=== PATIENT | female | born 1940 | race Caucasian/White ===

== ENCOUNTER 2016-09-25 05:06 | Day surgery (SDC) | payer MEDICARE, OTHER ==
[~2016-09-25 05:06] MED LIST: ADVAIR 1001 DISK W/D; ALEVE220 M3 PO; AMBIEN10 M1 PO; ARIMIDEX1 M1 PO; ASPIR 8181 M1 PO; ATENOLOL25 M1 PO; ATENOLOL25 MG; BACTRIM DS TAB1 EAC2 PO; CLONAZEPAM1 M2 PO; COZAAR25 M1 PO; GLUCOPHAGE1000 M1 PO; HYDROCHLOROTH12.5 M3 PO; HYDROCODON-ACE1 EA17 PO; INDOMETHACIN25 MG; LEVAQUIN500 M1 PO; LOVASTATIN20 MG; MELOXICAM15 M1 PO; METAMUCIL0.52 G1 PO; MOBIC15 M2 PO; NORCO 5-325 TA1 EACH PO; OXYCONTIN20 M2 PO; PLAVIX75 M1 PO; PROMETHAZINE HC25 M3 PO; PROVENTIL HFA6.7 G1; SENNA-S TABLET1 EAC3 PO; SIMVASTATIN40 M1 PO; TRAMADOL-ACETA1 EAC1 PO; TRAZODONE HCL50 M1 PO; TUMS200 MG PO; TYLENOL ARTHRI650 M1 PO; [UNRECOGNIZED DRUG - OTHER]
[2016-09-25 05:29] LABS: BASO % 0.8 % (0-2); BASO ABSOLUTE COUNT 0.1 tho/cmm (0.0-0.2); EOS % 8.7 % (0-7); EOSINOPHIL ABSOLUTE COUNT 0.7 tho/cmm (0.0-0.7); HCT-HEMATOCRIT 33.2 % (34.0-49.0); HGB-HEMOGLOBIN 10.3 gm/dl (12.0-15.5); IMMATURE GRANULOCYTES ABSOLUTE 0.01 tho/cmm (0-0.03); IMMATURE GRANULOCYTES PERCENT 0.1 % (0-0.3); LYMPH % 19.2 % (20-45); LYMPH ABSOLUTE COUNT 1.6 tho/cmm (0.8-4.5); MCH (MEAN CORPUSCULAR HGB) 23.9 pg (28.0-32.0); MEAN PLATELET VOLUME 8.5 cmc (9.4-12.4); MONO % 6.8 % (0-12); MONOCYTE ABSOLUTE COUNT 0.6 tho/cmm (0.0-1.2); NEUTROPHIL ABSOLUTE COUNT 5.5 tho/cmm (1.6-8.0); NEUTROPHIL-AUTOMATED 5.5 tho/cmm (1.6-8.0); NEUTROPHILS % 64.4 % (40-80); PLATELET COUNT 308 tho/cmm (150-450); RED BLOOD COUNT 4.31 mil/cmm (4.00-5.20); RED CELL DISTRIBUTION WIDTH 17.4 % (12.4-16.4); WHITE BLOOD COUNT 8.5 tho/cmm (4.0-10.0)
[2016-09-25 05:41] LABS: ANION GAP 13 mmol/L (0-20); BLOOD UREA NITROGEN 33 mg/dl (6-24); CALCIUM 8.9 mg/dl (8.5-10.5); CARBON DIOXIDE-VENOUS 24 mmol/L (22-32); CHLORIDE 107 mmol/l (96-110); CREATININE 0.83 mg/dl (0.50-1.10); GLUCOSE 107 mg/dL (70-110); POTASSIUM 4.3 mmol/L (3.7-5.1); SODIUM 140 mmol/L (135-145); eGFR VALUE FOR BLACK 80 mL/Min
== END 2016-09-25 12:25 ==
LOC: SHSB 05:06 → ORE 07:42 → PACU 08:27 → SHSB 10:05
PROVIDERS: Anesthesiology
PROC: 0YP93YZ Removal of Other Device from Right Lower Extremity, Percutaneous Approach (ICD-10-PCS; principal; 2016-09-25)
DX: T84.84XA Pain due to internal orthopedic prosthetic devices, implants and grafts, initial encounter (principal); I10 Essential (primary) hypertension; E11.9 Type 2 diabetes mellitus without complications; E78.5 Hyperlipidemia, unspecified; Z86.73 Personal history of transient ischemic attack (TIA), and cerebral infarction without residual deficits; M17.9 Osteoarthritis of knee, unspecified; Z95.1 Presence of aortocoronary bypass graft; Z88.1 Allergy status to other antibiotic agents; Z88.8 Allergy status to other drugs, medicaments and biological substances; Z79.82 Long term (current) use of aspirin; E66.9 Obesity, unspecified; Z87.891 Personal history of nicotine dependence
CPT/HCPCS: J0690